=== PATIENT | male | born 1985 | race Caucasian/White ===

== ENCOUNTER 2023-01-20 02:42 | Observation (INO) | payer BC ==
[2023-01-20] MEDS ORDERED: ASPIRIN 325 MG TAB PO STA (03:03)
[2023-01-20] MEDS ORDERED: SODIUM CHLORIDE 0.9% 1,000 ML IV STA (03:03)
--- NOTE | 2023-01-20 03:11 | ED ---
Chest Pain HPI - General Source: patient Mode of arrival: ambulatory <Tia Aceves - Last Filed: 01/20/23 03:10> - General Source: RN notes reviewed, old records reviewed <Kj Braun - Last Filed: 01/20/23 21:38> - General Chief Complaint: Chest Pain Stated Complaint: Chest Palptations Time Seen by Provider: 01/20/23 03:03 - History of Present Illness Initial Comments: 37-year-old male presenting for evaluation of chest pain. This was associated with diaphoresis. The patient gotten up to use the restroom, he felt a dull squeezing pain in his left upper chest with associated diaphoresis without vomiting. He has history of both hypertension and diabetes. Denies back pain. Denies abdominal pain. (Kj Braun) - Related Data Home Medications Medication Instructions Recorded Confirmed Acetaminophen [Tylenol Extra 1,500 mg PO DAILY PRN 06/28/17 01/20/23 Strength] Dulaglutide [Trulicity] 0.75 mg SQ Q7D 01/20/23 01/20/23 amLODIPine BESYLATE/BENAZEPRIL 1 cap PO DAILY 01/20/23 01/20/23 [amLODIPine BESYLATE/BENAZEPRIL 5-20 mg] Previous Rx's Medication Instructions Recorded glipiZIDE [Glucotrol] 5 mg PO AC-BRKFST #30 tab 06/29/17 metFORMIN HCL [Glucophage] 1,000 mg PO BID-W/MEALS #60 tab 06/29/17 Allergies Allergy/AdvReac Type Severity Reaction Status Date / Time No Known Allergies Allergy Verified 06/28/17 17:39 Review of Systems ROS Other: All systems not noted in ROS Statement are negative. <Tia Aceves - Last Filed: 01/20/23 03:10> ROS Other: All systems not noted in ROS Statement are negative. <Kj Braun - Last Filed: 01/20/23 21:38> ROS Statement: Those systems with pertinent positive or pertinent negative responses have been documented in the HPI. Past Medical History Past Medical History: Diabetes Mellitus History of Any Multi-Drug Resistant Organisms: None Reported Past Surgical History: No Surgical Hx Reported Past Psychological History: No Psychological Hx Reported Smoking Status: Never smoker Past Alcohol Use History: None Reported Past Drug Use History: None Reported - Past Family History Father Family Medical History: Hypertension, Myocardial Infarction ([place]) <Tia Aceves - Last Filed: 01/20/23 03:10> Course Vital Signs 01/20/23 01/20/23 01/20/23 02:53 04:22 05:05 Temperature 97.9 F Pulse Rate 104 H 87 85 Respiratory 22 18 18 Rate Blood Pressure 180/117 191/117 158/110 O2 Sat by Pulse 97 97 97 Oximetry 01/20/23 01/20/23 06:49 07:32 Temperature 98 F Pulse Rate 86 88 Respiratory 18 20 Rate Blood Pressure 193/124 195/111 O2 Sat by Pulse 99 97 Oximetry Chest Pain MDM <Tia Aceves - Last Filed: 01/20/23 03:10> <Kj Braun - Last Filed: 01/20/23 21:38> - MDM EKG taken at 03:00, interpreted by myself sinus tachycardia, left axis deviation, nonspecific T-wave abnormality Ventricular rate 102, VT interval 144, QRS ratio 105, QTC 430 (Tia Aceves) Was pt. sent in by a medical professional or institution (, PA, ENGROSSER, urgent care, hospital, or fci...) When possible be specific @ -[No] Did you speak to anyone other than the patient for history (EMS, parent, family, police, friend...)? What history was obtained from this source @ -[No] Did you review nursing and triage notes (agree or disagree)? Why? @ -[I reviewed and agree with nursing and triage notes] Were old charts reviewed (outside hosp., previous admission, EMS record, old EKG, old radiological studies, urgent care reports/EKG's, fci records)? Report findings @ -[No old charts were reviewed] Differential Diagnosis (chest pain, altered mental status, abdominal pain women, abdominal pain men, vaginal bleeding, weakness, fever, dyspnea, syncope, headache, dizziness, GI bleed, back pain, seizure, CVA, palpatations, mental health, musculoskeletal)? @ Differential Chest Pain: Stable Angina, Unstable Angina, STEMI, NSTEMI Aortic Dissection, Pneumothorax, Musculoskeletal, Esophageal Spasm GERD, Cholecystitis, Pancreatitis, Zoster, this is not meant to be an all-inclusive list. EKG interpreted by me (3pts min.). @ -[As above] X-rays interpreted by me (1pt min.). @ no acute cardiopulmonary findings CT interpreted by me (1pt min.). @ -[None done] U/S interpreted by me (1pt. min.). @ -[None done] What testing was considered but not performed or refused? (CT, X-rays, U/S, labs)? Why? @ -[None] What meds were considered but not given or refused? Why? @ -[None] Did you discuss the management of the patient with other professionals (professionals i.e. DrJenna, PA, ENGROSSER, lab, RT, psych nurse, clinical social work therapist, provisioning specialist, teacher, accounting officer, shelter case manager)? Give summary @ -EM Was smoking cessation discussed for >3mins.? @ -[No] Was critical care preformed (if so, how long)? @ -[No] Were there social determinants of health that impacted care today? How? (Homelessness, low income, unemployed, alcoholism, drug addiction, transportation, low edu. Level, literacy, decrease access to med. care, senior living, rehab)? @ -[No] Was there de-escalation of care discussed even if they declined (Discuss DNR or withdrawal of care, Hospice)? DNR status @ -[No] What co-morbidities impacted this encounter? (DM, HTN, Smoking, COPD, CAD, Ca ncer, CVA, ARF, Chemo, Hep., AIDS, mental health diagnosis, sleep apnea, morbid obesity)? @ -[hypertension, diabetes, obesity Was patient admitted / discharged? Hospital course, mention meds given and route, prescriptions, significant lab abnormalities, going to OR and other pertinent info. @ -[37-year-old male presenting with an episode of chest pain and diaphoresis. Patient has history of hypertension and diabetes. He describes a left anterior chest pain without radiation. No vomiting. No sharp chest pain, no back pain, no difficulty breathing. EKG is sinus without ST segment elevation. Chest x- ray is negative for acute findings. Patient will require observation for serial cardiac enzymes, telemetry, cardiology consultation. He has blood pressure is elevated is given a dose of amlodipine and labetalol in the emergency department. Undiagnosed new problem with uncertain prognosis? @ -[No] Drug Therapy requiring intensive monitoring for toxicity (Heparin, Nitro, Insulin, Cardizem)? @ -[No] Were any procedures done? @ -[No] Diagnosis/symptom? @ -chest pain Acute, or Chronic, or Acute on Chronic? @ -[acute Uncomplicated (without systemic symptoms) or Complicated (systemic symptoms)? @ -[default] Side effects of treatment? @ -[No] Exacerbation, Progression, or Severe Exacerbation? @ -[No] Poses a threat to life or bodily function? How? (Chest pain, [place], [place], pneumonia, PE, COPD, DKA, ARF, appy, cholecystitis, CVA, Diverticulitis, Homicidal, Suicidal, threat to staff... and all critical care pts) @ yes, chest pain (Kj Braun) Disposition <Tia Aceves - Last Filed: 01/20/23 03:10> Is patient prescribed a controlled substance at d/c from ED?: No <Kj Braun - Last Filed: 01/20/23 21:38> Clinical Impression: Chest pain Disposition: ADMITTED IP TO THIS HOSP Condition: Stable
[2023-01-20 03:32] LABS: ALT 68 U/L (4-49); AST 37 U/L (17-59); African American GFR (CKD) >90 (>60 ml/min/1.73 sqM); Albumin 4.8 g/dL (3.5-5.0); Alkaline Phosphatase 46 U/L (38-126); Anion Gap 12 mmol/L; Blood Urea Nitrogen 17 mg/dL (9-20); Calcium 9.7 mg/dL (8.4-10.2); Carbon Dioxide 23 mmol/L (22-30); Chloride 103 mmol/L (98-107); Glucose 218 mg/dL (74-99); Lipase 100 U/L (23-300); Magnesium 1.7 mg/dL (1.6-2.3); Non-African American GFR(CKD) >90 (>60 ml/min/1.73 sqM); Potassium 3.5 mmol/L (3.5-5.1); Sodium 138 mmol/L (137-145); Total Bilirubin 0.5 mg/dL (0.2-1.3)
[2023-01-20 03:36] LABS: INR 0.9 (<1.2); Prothrombin Time 9.8 sec (9.0-12.0)
[2023-01-20 03:46] LABS: Basophils % (A) 0 %; Eosinophils # (A) 0.2 k/uL (0-0.7); Eosinophils % (A) 2 %; HCT 46.5 % (39.0-53.0); HGB 16.4 gm/dL (13.0-17.5); Lymphocytes # (A) 2.4 k/uL (1.0-4.8); Lymphocytes % (A) 28 %; MCH 29.6 pg (25.0-35.0); MCHC 35.2 g/dL (31.0-37.0); MCV 84.1 fL (80.0-100.0); Mean Platelet Volume 8.4; Monocytes # (A) 0.7 k/uL (0-1.0); Monocytes % (A) 8 %; Neutrophils # (A) 5.2 k/uL (1.3-7.7); Neutrophils % (A) 60 %; Platelet Count 270 k/uL (150-450); RBC 5.53 m/uL (4.30-5.90); RDW 13.6 % (11.5-15.5); WBC 8.6 k/uL (3.8-10.6)
[2023-01-20] MEDS ORDERED: ACETAMINOPHEN TAB 325 MG TAB PO PRN (04:39)
[2023-01-20] MEDS ORDERED: amLODIPine 10 MG TAB PO STA (04:39)
[2023-01-20] MEDS ORDERED: NALOXONE 0.4 MG/ML 1 ML VIAL IV PRN (04:39)
[2023-01-20] MEDS ORDERED: LABETALOL 5 MG/ML VIAL MDV IVP STA ×2 (04:40→07:00)
--- NOTE | 2023-01-20 05:12 | XR ---
EXAM: XR Chest, 2 Views CLINICAL HISTORY: ITS.REASON XR Reason: Chest Pain TECHNIQUE: Frontal and lateral views of the chest. COMPARISON: 06/29/2017 FINDINGS: Lungs: Unremarkable. No consolidation. Pleural space: Unremarkable. No pneumothorax. Heart: Unremarkable. No cardiomegaly. Mediastinum: Unremarkable. Bones/joints: Unremarkable. IMPRESSION: Normal chest x-rays.
--- NOTE | 2023-01-20 10:57 | P.CRDCN ---
History of Present Illness History of present illness: HISTORY OF PRESENTING ILLNESS This is a pleasant 37-year-old with past medical history significant for hypertension, morbid obesity, diabetes mellitus type 2, family history of mother with HI in her 50s, suspected sleep apnea. He is not followed with a protection officer. He states yesterday he started having off shoulder and left chest pain associated with some shortness breath and feeling his heart racing. Symptoms lasted for a few hours and presented to emergency department. He was still having symptoms with time he came to the ER and noted be in sinus rhythm with heart rates in the 100 range with significant elevated blood pressure 180s over 110s. He states normally his blood pressures in the 160s whenever he goes attentiveness her doctor's office and usually at home similar numbers. He does snore often is tired throughout the day with a Mallampati 4. He only has been on amlodipine. He does have chronic diaphoresis. 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 He does believe he can walk on a treadmill. Denies any tobacco, alcohol, illicit drugs. Family history of mother with HI in her 50s. Currently chest pain improved. REVIEW OF SYSTEMS At the time of my exam: CONSTITUTIONAL: Denies fever or chills. CARDIOVASCULAR: +chest pain, +shortness of breath, no orthopnea, PND or palpitations. RESPIRATORY: Denies cough. GASTROINTESTINAL: Denies abdominal pain, diarrhea, constipation, nausea or vomiting. MUSCULOSKELETAL: Denies myalgias. NEUROLOGIC: Denies numbness, tingling or weakness. ENDOCRINE: Denies fatigue, weight change, polydipsia or polyurina. GENITOURINARY: Denies burning, hematuria or urgency with micturation. HEMATOLOGIC: Denies history of anemia or bleeding. PHYSICAL EXAMINATION Vital signs reviewed. CONSTITUTIONAL: No apparent distress, obese, Mallampati 4. HEENT: Head is normocephalic. Pupils are equal, round. Sclerae anicteric. Mucous membranes of the mouth are moist. No JVD. No carotid bruit. CHEST EXAMINATION: Lungs are clear to auscultation. No chest wall tenderness is noted on palpation or with deep breathing. HEART EXAMINATION: Regular rate and rhythm. S1, S2 heard. No murmurs, gallops or rub. ABDOMEN: Soft, nontender. Positive bowel sounds. EXTREMITIES: 2+ peripheral pulses, no lower extremity edema and no calf tenderness. NEUROLOGIC EXAMINATION: Patient is awake, alert and oriented x3. ASSESSMENT 1. Atypical chest pain 2. Chronic shortness breath 3. Uncontrolled hypertension 4. Diabetes mellitus type 2 5. Family history of CAD 6. Morbid obesity 7. Suspected sleep apnea PLAN Patient with somewhat atypical symptoms however number of risk factors and still intermittently feeling heart racing and mild chest tightness. We will check 2-D echo to evaluate left ventricular function. Add losartan given diabetes and uncontrolled high blood pressure. Likely will need multiple antihypertensive medications. Discussed importance of weight loss and treatment of sleep apnea. Patient believes he can walk on a treadmill and attempt stress echo however if unable attempt dobutamine stress echo. Unclear if we will be able to obtain adequate windows on echo however we will attempt. Past Medical History Past Medical History: Diabetes Mellitus, Hypertension History of Any Multi-Drug Resistant Organisms: None Reported Past Surgical History: No Surgical Hx Reported Past Psychological History: No Psychological Hx Reported Smoking Status: Never smoker Past Alcohol Use History: None Reported Past Drug Use History: None Reported - Past Family History Father Family Medical History: Hypertension, Myocardial Infarction ([place]) Medications and Allergies Home Medications Medication Instructions Recorded Confirmed Type Acetaminophen [Tylenol Extra 1,500 mg PO DAILY PRN 06/28/17 06/28/17 History Strength] Pantoprazole [Protonix] 40 mg PO AC-BID #60 tablet. 06/29/17 Rx amLODIPine [Norvasc] 5 mg PO BID #30 tab 06/29/17 Rx glipiZIDE [Glucotrol] 5 mg PO AC-BRKFST #30 tab 06/29/17 Rx metFORMIN HCL [Glucophage] 1,000 mg PO BID-W/MEALS #60 tab 06/29/17 Rx Allergies Allergy/AdvReac Type Severity Reaction Status Date / Time No Known Allergies Allergy Verified 06/28/17 17:39 Physical Exam Vitals: Vital Signs Temp Pulse Pulse Resp BP BP Pulse Ox 01/20/23 08:29 97 01/20/23 07:52 97.4 F L 64 18 168/115 97 01/20/23 07:32 98 F 88 20 195/111 97 01/20/23 06:49 86 18 193/124 99 01/20/23 05:05 85 18 158/110 97 01/20/23 04:22 87 18 191/117 97 01/20/23 02:53 97.9 F 104 H 22 180/117 97 Intake and Output 01/19/23 01/20/23 01/20/23 22:59 06:59 14:59 Other: Weight 181.437 kg Results 01/20/23 03:16 01/20/23 03:16 Cardiac Enzymes 01/20/23 01/20/23 01/20/23 Range/Units 03:16 03:16 07:57 AST 37 (17-59) U/L Troponin I <0.012 <0.012 (0.000-0.034) ng/mL Coagulation 01/20/23 Range/Units 03:16 PT 9.8 (9.0-12.0) sec APTT 23.0 (22.0-30.0) sec CBC 01/20/23 Range/Units 03:16 WBC 8.6 (3.8-10.6) k/uL RBC 5.53 (4.30-5.90) m/uL Hgb 16.4 (13.0-17.5) gm/dL Hct 46.5 (39.0-53.0) % Plt Count 270 (150-450) k/uL Comprehensive Metabolic Panel 01/20/23 Range/Units 03:16 Sodium 138 (137-145) mmol/L Potassium 3.5 (3.5-5.1) mmol/L Chloride 103 (98-107) mmol/L Carbon Dioxide 23 (22-30) mmol/L BUN 17 (9-20) mg/dL Creatinine 0.59 L (0.66-1.25) mg/dL Glucose 218 H (74-99) mg/dL Calcium 9.7 (8.4-10.2) mg/dL AST 37 (17-59) U/L ALT 68 H (4-49) U/L Alkaline Phosphatase 46 (38-126) U/L Total Protein 8.0 (6.3-8.2) g/dL Albumin 4.8 (3.5-5.0) g/dL Current Medications Generic Name Dose Route Start Last Admin Trade Name Freq PRN Reason Stop Dose Admin Acetaminophen 650 mg 01/20/23 04:39 Acetaminophen Tab 325 Mg Tab PO Q6HR PRN Mild Pain or Fever > 100.5 Naloxone HCl 0.2 mg 01/20/23 04:39 Naloxone 0.4 Mg/Ml 1 Ml Vial IV Q2M PRN Opioid Reversal Intake and Output 01/19/23 01/20/23 01/20/23 22:59 06:59 14:59 Other: Weight 181.437 kg 01/20/23 03:16 01/20/23 03:16
[2023-01-20] MEDS ORDERED: DEXTROSE 50% SYRINGE 50 ML IVP PRN ×2 (11:32)
[2023-01-20 12:00] LABS: Appearance,Urine Clear (Clear); Bilirubin,Urine Negative (Negative); Blood,Urine Negative (Negative); Color,Urine Light Yellow; Glucose,Urine (UA) 3+ (Negative); Ketones,Urine Negative (Negative); Leukocyte Esterase,Urine Negative (Negative); Nitrite,Urine Negative (Negative); PH, Urine 5.5 (5.0-8.0); Protein,Urine Negative (Negative); Specific Gravity,Urine 1.015 (1.001-1.035); Urobilinogen,Urine <2.0 mg/dL (<2.0)
[2023-01-20 12:43] LABS: Glucose,Whole Blood 167 mg/dL (70-110)
[2023-01-20] MEDS: LOSARTAN 50 MG TAB PO SCH (12:44)
[2023-01-20] MEDS: INSULIN ASPART (NovoLOG) 100 UNIT/ML VIAL SQ SCH ×3 (13:16→20:46)
--- NOTE | 2023-01-20 15:26 | P.HPIM ---
History of Present Illness H&P Date: 01/20/23 History of present illness; patient is 37 year-old gentleman with past medical h istory significant for hypertension, diabetes and that the ER because of chest pain. Patient stated that he was all right yesterday when he started having chest pressure, chest pressure was central in location, nonradiating, associated with shortness of breath. Patient also had feeling of palpitations. Denies any nausea or vomiting. Denies any swelling of feet. Because of this chest pressure and shortness of breath, patient came to the ER. In the ER, patient was found to be hypertensive and tachycardic. Initial lab work done in the ER showed WBC 8.6, hemoglobin 16.4, rated count 270, sodium 1:30, potassium 3.5, BUN 17, creatinine 0.59 EKG done in the ER showed ventricle rate of 102, no ST segment elevation or depression., No T-wave inversion patient admitted to medicine service REVIEW OF SYSTEMS: CONSTITUTIONAL: No fever, no malaise, no fatigue. HEENT: No recent visual problems or hearing problems. Denied any sore throat. CARDIOVASCULAR: As mentioned in HPI PULMONARY: No shortness of breath, no cough, no hemoptysis. GASTROINTESTINAL: No diarrhea, no nausea, no vomiting, no abdominal pain. NEUROLOGICAL: No headaches, no weakness, no numbness. HEMATOLOGICAL: Denies any bleeding or petechiae. GENITOURINARY: Denies any burning micturition, frequency, or urgency. MUSCULOSKELETAL/RHEUMATOLOGICAL: Denies any joint pain, swelling, or any muscle pain. ENDOCRINE: Denies any polyuria or polydipsia. The rest of the 14-point review of systems is negative. PHYSICAL EXAMINATION: GENERAL: The patient is alert and oriented x3, not in any acute distress. Well developed, well nourished. HEENT: Pupils are round and equally reacting to light. EOMI. No scleral icterus. No conjunctival pallor. Normocephalic, atraumatic. No pharyngeal erythema. No thyromegaly. CARDIOVASCULAR: S1 and S2 present. No murmurs, rubs, or gallops. PULMONARY: Chest is clear to auscultation, no wheezing or crackles. ABDOMEN: Soft, nontender, nondistended, normoactive bowel sounds. No palpable organomegaly. MUSCULOSKELETAL: No joint swelling or deformity. EXTREMITIES: No cyanosis, clubbing, or pedal edema. NEUROLOGICAL: Gross neurological examination did not reveal any focal deficits. SKIN: No rashes. Assessment and plan Chest pain Diabetes mellitus Hypertension Monitor vital signs Monitor CBC Monitor CMP Continue telemetry monitoring Trend troponin Ordered 2-D echo Consult cardiology Resume home meds Labs and medication were reviewed.. Continue same treatment. Continue with symptomatic treatment. Resume home medication. Monitor labs and vitals. DVT and GI prophylaxis. Further recommendations as per clinical course of the patient Dictation was produced using [employer] dictation software. please excuse any grammatical, word or spelling errors. Past Medical History Past Medical History: Diabetes Mellitus, Hypertension History of Any Multi-Drug Resistant Organisms: None Reported Past Surgical History: No Surgical Hx Reported Past Psychological History: No Psychological Hx Reported Smoking Status: Never smoker Past Alcohol Use History: None Reported Past Drug Use History: None Reported - Past Family History Father Family Medical History: Hypertension, Myocardial Infarction ([place]) Medications and Allergies Home Medications Medication Instructions Recorded Confirmed Type Acetaminophen [Tylenol Extra 1,500 mg PO DAILY PRN 06/28/17 01/20/23 History Strength] glipiZIDE [Glucotrol] 5 mg PO AC-BRKFST #30 tab 06/29/17 01/20/23 Rx metFORMIN HCL [Glucophage] 1,000 mg PO BID-W/MEALS #60 tab 06/29/17 01/20/23 Rx Dulaglutide [Trulicity] 0.75 mg SQ Q7D 01/20/23 01/20/23 History amLODIPine BESYLATE/BENAZEPRIL 1 cap PO DAILY 01/20/23 01/20/23 History [amLODIPine BESYLATE/BENAZEPRIL 5-20 mg] Allergies Allergy/AdvReac Type Severity Reaction Status Date / Time No Known Allergies Allergy Verified 06/28/17 17:39 Physical Exam Vitals: Vital Signs Temp Pulse Pulse Resp BP BP Pulse Ox 01/20/23 08:29 97 01/20/23 07:52 97.4 F L 64 18 168/115 97 01/20/23 07:32 98 F 88 20 195/111 97 01/20/23 06:49 86 18 193/124 99 01/20/23 05:05 85 18 158/110 97 01/20/23 04:22 87 18 191/117 97 01/20/23 02:53 97.9 F 104 H 22 180/117 97 Intake and Output 01/19/23 01/20/23 01/20/23 22:59 06:59 14:59 Other: Weight 181.437 kg Results CBC & Chem 7: 01/20/23 03:16 01/20/23 03:16 Labs: Abnormal Lab Results - Last 24 Hours (Table) 01/20/23 Range/Units 03:16 Creatinine 0.59 L (0.66-1.25) mg/dL Glucose 218 H (74-99) mg/dL ALT 68 H (4-49) U/L
[2023-01-20 17:10] LABS: Glucose,Whole Blood 141 mg/dL (70-110)
[2023-01-20 20:19] LABS: Glucose,Whole Blood 191 mg/dL (70-110)
[2023-01-21 06:05] LABS: Glucose,Whole Blood 208 mg/dL (70-110)
[2023-01-21] MEDS ORDERED: hydrALAZINE HCL 20 MG/ML 1 ML VIAL IVP ONE (06:17)
[2023-01-21 07:49] VITALS: BP 153/107; PULSE 85; RESP 16; TEMP 97.5
[2023-01-21 08:28] LABS: Glucose,Whole Blood 201 mg/dL (70-110)
--- NOTE | 2023-01-21 08:33 | P.PN ---
Subjective Progress Note Date: 01/21/23 HISTORY OF PRESENTING ILLNESS This is a pleasant 37-year-old with past medical history significant for hyp ertension, morbid obesity, diabetes mellitus type 2, family history of mother with [place] in her 50s, suspected sleep apnea. He is not followed with a fundraising director. He states yesterday he started having off shoulder and left chest pain associated with some shortness breath and feeling his heart racing. Symptoms lasted for a few hours and presented to emergency department. He was still having symptoms with time he came to the ER and noted be in sinus rhythm with heart rates in the 100 range with significant elevated blood pressure 180s over 110s. He states normally his blood pressures in the 160s whenever he goes attentiveness her doctor's office and usually at home similar numbers. He does snore often is tired throughout the day with a Mallampati 4. He only has been on amlodipine. He does have chronic diaphoresis. 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 He does believe he can walk on a treadmill. Denies any tobacco, alcohol, illicit drugs. Family history of mother with [place] in her 50s. Currently chest pain improved. 01/21 Patient has had no events overnight. No chest pain, shortness of breath, lightheadedness or dizziness, no palpitations. He is scheduled for stress echocardiogram and regular echocardiogram today. Blood pressure this morning is 153/107, heart rate is in the 80s, pulse ox 97% on room air. PHYSICAL EXAMINATION Vital signs reviewed. CONSTITUTIONAL: No apparent distress, obese, Mallampati 4. HEENT: Head is normocephalic. Pupils are equal, round. Sclerae anicteric. Mucous membranes of the mouth are moist. No JVD. No carotid bruit. CHEST EXAMINATION: Lungs are clear to auscultation. No chest wall tenderness is noted on palpation or with deep breathing. HEART EXAMINATION: Regular rate and rhythm. S1, S2 heard. No murmurs, gallops or rub. ABDOMEN: Soft, nontender. Positive bowel sounds. EXTREMITIES: 2+ peripheral pulses, no lower extremity edema and no calf tenderness. NEUROLOGIC EXAMINATION: Patient is awake, alert and oriented x3. ASSESSMENT 1. Atypical chest pain 2. Chronic shortness breath 3. Uncontrolled hypertension 4. Diabetes mellitus type 2 5. Family history of CAD 6. Morbid obesity 7. Suspected sleep apnea PLAN Patient with somewhat atypical symptoms however number of risk factors and still intermittently feeling heart racing and mild chest tightness. We will check 2-D echo to evaluate left ventricular function. Add losartan given diabetes and uncontrolled high blood pressure. Add amlodipine 10 mg daily Likely will need multiple antihypertensive medications. Discussed importance of weight loss and treatment of sleep apnea. Patient believes he can walk on a treadmill and attempt stress echo however if unable attempt dobutamine stress echo. Unclear if we will be able to obtain adequate windows on echo however we will attempt. If stress echo and echocardiogram are unremarkable, patient is cleared for discharge from cardiology and may follow-up in the office. Impression and plan of care have been directed as dictated by the signing physician. Michelle Contreras nurse practitioner acting as scribe for signing physician. Objective - Vital Signs Vital signs: Vital Signs Temp 97.8 F 01/21/23 02:00 Pulse 86 01/21/23 02:00 Resp 12 01/21/23 02:00 BP 162/97 01/21/23 06:49 Pulse Ox 99 01/21/23 02:00 FiO2 Intake & Output 01/20/23 01/21/23 01/21/23 18:59 06:59 18:59 Intake Total 118 Balance 118 Intake: Oral 118 Other: # Voids 3 3 - Labs CBC & Chem 7: 01/20/23 03:16 01/20/23 03:16 Labs: Abnormal Lab Results - Last 24 Hours (Table) 01/20/23 01/20/23 01/20/23 Range/Units 11:45 12:42 17:09 POC Glucose (mg/dL) 167 H 141 H (70-110) mg/dL Urine Glucose (UA) 3+ H (Negative) 01/20/23 01/21/23 Range/Units 20:17 06:04 POC Glucose (mg/dL) 191 H 208 H (70-110) mg/dL Urine Glucose (UA) (Negative)
[2023-01-21] MEDS: LOSARTAN 50 MG TAB PO SCH (08:50)
[2023-01-21] MEDS: INSULIN ASPART (NovoLOG) 100 UNIT/ML VIAL SQ SCH ×2 (08:51→12:14)
[2023-01-21] MEDS ORDERED: amLODIPine 10 MG TAB PO SCH (09:00)
[2023-01-21] MEDS ORDERED: NON FORMULARY DRUG (Amlodipine Besylate/Benazepril [Amlodipine Besylate/Benazepril 5-20 Mg PO SCH (09:00)
--- NOTE | 2023-01-21 11:22 | CA ---
Stress Echo Report Devon Weaver Age: 37 Gender: M : 1985 Exam Date: 01/21/2023 10:49 Exam Location: [place] [facility] Ht (in): 72 Wt (lb): 400 Ordering Physician: Tom Talley DO ([email or web address]) Referring Physician: HUY, Electrical Tester Battery: PAUL, Technologist Procedure CPT: Indication: re: chest pain ICD-9 Codes: Rhythm: Patient History: Chest pressure Cardiac Medications: Medications in past 24 hours: Contrast: Stress Results Protocol: Pro Total dose(mL): Exercise Duration (min:sec): 7:[address] Depression (mm): Angina Score: Rodriguez Score: METS: 7.7 Resting HR: 81 Resting BP: 149 / 85 Peak HR: 165 Peak BP: 238 / 100 Max Predicted HR: 184 90 % Max Predicted HR Target HR: 156 Double Product: [id number] Stress Summary: The patient's target heart rate was achieved BP Response: Abnormal increase in BP during/after stress Reason for Termination: Reached target heart rate or work-load Cardiac Symptoms: No symptoms ECG Analysis Resting ECG: Normal sinus rhythm, normal ECG Stress ECG: No abnormal ST/T wave changes with exercise Arrhythmia: Occasional PVCs Echo Analysis Resting Echo: Normal resting echocardiogram. Peak Echo Analysis: Normal wall motion augmentation with no hypokinesis or dyskinesis MEASUREMENTS (Male/Female) Normal Values CONCLUSIONS No ECG evidence of ischemia with exercise. Normal treadmill stress echocardiogram. Dr. Tona Chi MD (Electronically Signed) Final Date: 21 January 2023 11:21
[2023-01-21 12:00] LABS: Glucose,Whole Blood 167 mg/dL (70-110)
--- NOTE | 2023-01-21 14:16 | P.DS ---
Providers Date of admission: 01/20/23 04:39 Expected date of discharge: 01/21/23 Attending physician: Hector Bales Consults: 01/20/23 04:39 Consult Physician Routine Consulting Provider: Tom Talley Consult Reason/Comments: CP Do you want consulting provider notified?: Yes Primary care physician: Hector Bales Hospital Course: Final Diagnoses: Chest pain, troponin negative 3, in a patient with family history of CAD, stress echo pending Diabetes mellitus, hemoglobin A1c 7.4 Hypertension Morbid obesity, BMI 54.2 Hospital course; this is a 37-year-old gentleman with past medical history significant for morbid obesity, hypertension, diabetes admitted to the ER with chest pain, palpitations/heart racing accompanied by dyspnea and his left chest radiating to left shoulder and left axilla, lasting for a few hours and hypertension. Evaluated by cardiology, scheduled for a stress echo. Denies recurrence of chest pain, palpitations or heart racing. Denies shortness of breath, maintaining O2 sats in the high 90s on room air. Antihypertensive adjusted as per cardiology. Significant clinical improvement. Patient will be discharged home today in a stable condition with her prognosis pending stress echo, final DC recommendations and clearance per cardiology. The impression and plan of care has been dictated as directed. : I performed a history and examination of this patient, discussed the same with the dictator. I agree with the dictator's note ,documented as a scribe. Any additional findings or plans will be noted. Patient Condition at Discharge: Stable Plan - Discharge Summary New Discharge Prescriptions: New Losartan [Cozaar] 100 mg PO DAILY #30 tab amLODIPine [Norvasc] 10 mg PO DAILY #30 tab Continue Acetaminophen [Tylenol Extra Strength] 1,500 mg PO DAILY PRN PRN Reason: Pain glipiZIDE [Glucotrol] 5 mg PO AC-BRKFST #30 tab metFORMIN HCL [Glucophage] 1,000 mg PO BID-W/MEALS #60 tab Dulaglutide [Trulicity] 0.75 mg SQ Q7D Discontinued amLODIPine BESYLATE/BENAZEPRIL [amLODIPine BESYLATE/BENAZEPRIL 5-20 mg] 1 cap PO DAILY Discharge Medication List Acetaminophen [Tylenol Extra Strength] 1,500 mg PO DAILY PRN 06/28/17 [History] glipiZIDE [Glucotrol] 5 mg PO AC-BRKFST #30 tab 06/29/17 [Rx] metFORMIN HCL [Glucophage] 1,000 mg PO BID-W/MEALS #60 tab 06/29/17 [Rx] Dulaglutide [Trulicity] 0.75 mg SQ Q7D 01/20/23 [History] Losartan [Cozaar] 100 mg PO DAILY #30 tab 01/21/23 [Rx] amLODIPine [Norvasc] 10 mg PO DAILY #30 tab 01/21/23 [Rx] Follow up Appointment(s)/Referral(s): Tom Talley DO [STAFF PHYSICIAN] - 01/29/23 8:30 am Hector Bales DO [Primary Care Provider] - 3 Days Activity/Diet/Wound Care/Special Instructions: HGB A1c 7.4, further diabetic education OP in clinic with PCP
--- NOTE | 2023-01-22 07:37 | CA ---
Transthoracic Echo Report Name: Devon Weaver Age: 37 Gender: M : 1985 Exam Date: 01/21/2023 11:08 Exam Location: [facility] Ht (in): 72 Wt (lb): 400 Ordering Physician: Tom Talley DO ([id number]) Attending/Referring Phys: Mayank Santos;[id number] Veronique Calix RDCS Procedure CPT: Indications: re: CP Cardiac Hx: RVIDd 3.7 cm Technical Quality: Good Contrast 1: Total Dose (mL): Contrast 2: Total Dose (mL): MEASUREMENTS (Male / Female) Normal Values FINDINGS Left Ventricle Left ventricular ejection fraction is estimated at 55-60 %. Left ventricular cavity size normal. Mild concentric left ventricular hypertrophy. Right Ventricle Mild right ventricular dilatation. Unable to estimate the right ventricular systolic pressure. Right Atrium Normal right atrial size. Left Atrium Mild left atrial dilatation. Mitral Valve Structurally normal mitral valve. No mitral stenosis, regurgitation or prolapse. Aortic Valve Trileaflet aortic valve. No aortic valve stenosis or regurgitation. Tricuspid Valve Structurally normal tricuspid valve. No tricuspid stenosis, regurgitation or prolapse. Pulmonic Valve Structurally normal pulmonic valve. No pulmonic regurgitation. Pericardium Normal pericardium. No pericardial effusion. Aorta Normal size aortic root and proximal ascending aorta. CONCLUSIONS 1. Normal left ventricle size and systolic function 2. No significant valvular abnormalities Previewed by: Dr. Tona Chi MD (Electronically Signed) Final Date: 22 January 2023 07:37
== END 2023-01-21 14:02 | disposition home or self-care (01) ==
LOC: EC 02:42 → 6NMEDSUR 04:39
PROVIDERS: ADMIT Family Medicine; ATTEND Family Medicine
DX: R07.89 Other chest pain (principal); R06.02 Shortness of breath; R61 Generalized hyperhidrosis; I10 Essential (primary) hypertension; R00.0 Tachycardia, unspecified; R06.83 Snoring; R00.2 Palpitations; E11.9 Type 2 diabetes mellitus without complications; E66.01 Morbid (severe) obesity due to excess calories; Z68.43 Body mass index [BMI] 50.0-59.9, adult; Z79.84 Long term (current) use of oral hypoglycemic drugs; Z79.85 Long-term (current) use of injectable non-insulin antidiabetic drugs; Z79.899 Other long term (current) drug therapy; Z82.49 Family history of ischemic heart disease and other diseases of the circulatory system
CPT/HCPCS: 96361 ×3; 96376; 96374; 99285; 36415; 94760; 93005; 93306; 93351; 85379; 80053; 83690; 83735; 84484; 85025; 85610; 85730; 81003; 83036; 71046; G0378 ×2; 96375

== ENCOUNTER 2023-04-28 19:36 | Outpatient (CLI) | payer BC ==
--- NOTE | 2023-05-03 07:56 | SLS ---
SLEEP STUDY STUDY PERFORMED: Polysomnography report. This is a 37-year-old male patient with chronic hypersomnia, loud snoring and witnessed apneas and sleep fragmentation. The patient is morbidly obese. He carries an Tuttle score of 16. PERTINENT PHYSICAL FINDINGS: The patient has a weight of 407 pounds with a body mass index of 55.2. TECHNICAL DESCRIPTION: The sleep evaluation of the patient consisted of clinical polysomnography, nocturnal respiratory battery, left and right anterior tibialis surface electromyography. The standard montage for the clinical polysomnography included the EEG, EOG, EMG, and EKG. Respiratory battery included measurements of nasal/buccal airflow, thoracic, and/or abdominal effort and intercostal surface EMG. Nocturnal oxyhemoglobin saturations were obtained by finger oximetry. Digital video and audio monitoring were done throughout the entire night to check or parasomnias. SLEEP ARCHITECTURE: Total time in bed was 423 minutes. Total sleep time was 396 minutes. Sleep efficiency was calculated to be at 93.6%. Latency to sleep onset was 7 minutes. Latency to REM sleep was 208 minutes. The sleep architecture was characterized by 59.9% stage I, 17.9% stage II, 0% stage III, and 12.1% REM sleep. The latency to REM onset was 208.5 minutes. The wake after sleep onset time was 20 minutes and total arousal index was 42. RESPIRATORY ANALYSIS: The sleep study showed a total of 635 obstructive events of which 620 were obstructive hypopneas and 15 were mixed apneas, no central apneas were noted. No obstructive apneas were noted. The apnea-hypopnea index was 92.9 consistent with severe obstructive sleep apnea. SLEEP CONTINUITY SUMMARY: There were a total of 177 arousals with an index of 42. Respiratory arousal index was 32.9. Periodic limb movements were none. CARDIAC SUMMARY: Average heart rate was 71, minimum heart rate was 63, maximum heart rate was 83. IMPRESSION: 1. Severe obstructive sleep apnea with an AHI of 92.9. Respiratory events were essentially in the form of obstructive hypopneas. 2. Severe nocturnal oxygen desaturation. The patient's lowest pulse ox was 51% and the patient spent 4 hours and 17 minutes of the sleep time below pulse ox of 89%. 3. Abnormal sleep architecture with significant over-representation of stage 1 sleep and diminished delta wave and REM and stage II. 4. Severe sleep fragmentation secondary to obstructive sleep apnea. 5. Morbid obesity with a BMI of 55. 6. Chronic hypersomnia. Tuttle score of 16. 7. Morbid obesity with a BMI of 55.2. PLAN: Proceed with CPAP titration. WHITNEY / MEGAN: [id number] /
== END 2023-04-29 19:40 | disposition home or self-care (01) ==
LOC: 3 N SLEEP 19:36
PROVIDERS: ATTEND Internal Medicine Critical Care Medicine
DX: G47.33 Obstructive sleep apnea (adult) (pediatric) (principal); G47.36 Sleep related hypoventilation in conditions classified elsewhere; G47.8 Other sleep disorders; G47.10 Hypersomnia, unspecified; E66.9 Obesity, unspecified; Z68.43 Body mass index [BMI] 50.0-59.9, adult
CPT/HCPCS: 95810

== ENCOUNTER 2023-05-13 19:44 | Outpatient (CLI) | payer BC | END 2023-05-14 05:40 | disposition home or self-care (01) | LOC: 3 N SLEEP 19:44 | PROVIDERS: ATTEND Internal Medicine Critical Care Medicine | DX: G47.10 Hypersomnia, unspecified (principal) | CPT/HCPCS: 95811 ==